=== PATIENT | female | born 1985 | race Two or more races ===

== ENCOUNTER 2021-08-05 15:58 | Emergency (ER) | payer SELFPAY ==
[2021-08-05 16:49] VITALS: BP 114/74; PULSE 89; TEMP 98.1; BMI 23.3
== END 2021-08-05 16:51 | disposition home or self-care (01) ==
LOC: FER 15:58
DX: L76.34 Postprocedural seroma of skin and subcutaneous tissue following other procedure (principal)
CPT/HCPCS: 99281-25

== ENCOUNTER 2022-02-15 15:43 | Emergency (ER) | payer BC ==
[2022-02-15 15:53] VITALS: BP 125/83; PULSE 63; RESP 18; TEMP 100; BMI 23.3
[2022-02-15] MEDS ORDERED: ONDANSETRON 4 MG/2 ML VIAL IVPUSH ONE (16:32)
[2022-02-15] MEDS ORDERED: ACETAMINOPHEN 1000 MG/100 ML BAG IVPB ONE (16:32)
[2022-02-15] MEDS ORDERED: FAMOTIDINE 20 MG/50 ML IVPB 20 MG/50 ML MG IVPB ONE ×2 (16:32→16:54)
[2022-02-15] MEDS ORDERED: SODIUM CHLORIDE 1,000 ML IV STA (16:32)
[2022-02-15] MEDS ORDERED: ONDANSETRON 4 MG/2 ML VIAL ONE (16:54)
[2022-02-15] MEDS ORDERED: ACETAMINOPHEN INJECTION 100 ML IVPB ONE (16:54)
[2022-02-15 17:34] LABS: BASO % 0.3 % (0-2.0); HEMATOCRIT 40.8 % (32.4-45.2); HEMOGLOBIN 13.6 GM/dL (10.7-15.3); LYMPH % 8.4 % (8-40); MCH 28.8 pg (25.7-33.7); MCHC 33.3 g/dl (32.0-36.0); MEAN CELL VOLUME 86.7 fl (80-96); MEAN PLT VOLUME 10.7 fl (7.5-11.1); MONO % 2.5 % (3.8-10.2); NEUT % 88.8 % (42.8-82.8); PLATELET COUNT 173 10^3/uL (134-434); RDW 14.3 % (11.6-15.6)
[2022-02-15 17:38] LABS: EPI CELLS 33 /uL (0-25.1); HYALINE CASTS 3 /uL (0-3.1); PH,URINE 8.5 (5.0-8.0); URINE APPEARANCE CLEAR; URINE BACTERIA 244 /uL (0-1359); URINE BILIRUBIN NEGATIVE (NEGATIVE); URINE COLOR YELLOW; URINE GLUCOSE (UA) NEGATIVE (NEGATIVE); URINE KETONE TRACE (NEGATIVE); URINE LEUK ESTERASE TRACE (NEGATIVE); URINE NITRITE NEGATIVE (NEGATIVE); URINE PROTEIN 1+ (NEGATIVE); URINE RBC 13 /uL (0-23.9); URINE WBC 22 /uL (0-25.8)
[2022-02-15 17:39] LABS: HCG,QUALITATIVE URINE Negative
[2022-02-15 18:04] LABS: CALCIUM 9.5 mg/dL (8.5-10.1)
[2022-02-15 18:05] LABS: ALBUMIN 4.5 g/dl (3.4-5.0); BLOOD UREA NITROGEN 16.3 mg/dL (7-18)
[2022-02-15 18:08] LABS: CREATININE 0.8 mg/dL (0.55-1.3)
[2022-02-15 18:09] LABS: BILIRUBIN,TOTAL 0.7 mg/dL (0.2-1); TOT PROT 7.8 g/dl (6.4-8.2)
== END 2022-02-15 18:47 | disposition home or self-care (01) ==
LOC: JER 15:43
PROC: 3E033NZ Introduction of Analgesics, Hypnotics, Sedatives into Peripheral Vein, Percutaneous Approach (ICD-10-PCS; principal; 2022-02-15)
PROC: 3E033GC Introduction of Other Therapeutic Substance into Peripheral Vein, Percutaneous Approach (ICD-10-PCS; 2022-02-15)
PROC: 3E0337Z Introduction of Electrolytic and Water Balance Substance into Peripheral Vein, Percutaneous Approach (ICD-10-PCS; 2022-02-15)
DX: R11.2 Nausea with vomiting, unspecified (principal)
CPT/HCPCS: 0241U-QW; 36415; 80053; 81003; 83690; 84703; 85025; 87086; 99284-25

== ENCOUNTER 2022-09-15 15:05 | Emergency (ER) | payer BC ==
[2022-09-15 15:28] VITALS: BP 123/89; PULSE 79; RESP 18; TEMP 98.1; BMI 23.3
[2022-09-15] MEDS ORDERED: ACETAMINOPHEN 325 MG TABLET (FP) PO ONE (16:28)
[2022-09-15] MEDS ORDERED: ACETAMINOPHEN 325 MG TABLET (FP) ONE (16:34)
[2022-09-15] MEDS ORDERED: FLUCONAZOLE 150 MG TABLET PO ONE ×2 (16:44→16:45)
== END 2022-09-15 16:55 | disposition home or self-care (01) ==
LOC: FER 15:05
DX: J98.8 Other specified respiratory disorders (principal); B37.9 Candidiasis, unspecified; R50.9 Fever, unspecified; M79.10 Myalgia, unspecified site; R09.81 Nasal congestion; R05.1 Acute cough; R20.8 Other disturbances of skin sensation; R51.9 Headache, unspecified; Z20.822 Contact with and (suspected) exposure to COVID-19
CPT/HCPCS: 0241U-QW; 99283-25

== ENCOUNTER 2024-04-09 23:26 | Emergency (ER) | payer BC ==
[2024-04-09] MEDS ORDERED: SILVER SULFADIAZINE 1% TOP CREAM 50 GM JAR TP ONE (23:36)
[2024-04-09] MEDS ORDERED: CEPHALEXIN MONOHYDRATE 500 MG CAPSULE (UD) ONE (23:37)
[2024-04-09 23:38] VITALS: BP 118/87; PULSE 73; RESP 17; TEMP 98.8; BMI 25.8
[2024-04-09] MEDS ORDERED: IBUPROFEN 600 MG TABLET (FP) PO ONE (23:38)
[2024-04-09] MEDS ORDERED: DIPHTH,PERTUSS(ACELL),TET 0.5 ML DISP.SYRIN IM ONE (23:38)
[2024-04-09] MEDS: DIPHTH,PERTUSS(ACELL),TET 0.5 ML DISP.SYRIN IM ONE (23:48)
[2024-04-09] MEDS: IBUPROFEN 600 MG TABLET (FP) PO ONE (23:50)
[2024-04-09] MEDS: SILVER SULFADIAZINE 1% TOP CREAM 50 GM JAR TP ONE (23:51)
[2024-04-09] MEDS: CEPHALEXIN MONOHYDRATE 500 MG CAPSULE (UD) PO ONE (23:51)
== END 2024-04-10 00:04 | disposition home or self-care (01) ==
LOC: FER 23:26
PROC: 3E0234Z Introduction of Serum, Toxoid and Vaccine into Muscle, Percutaneous Approach (ICD-10-PCS; principal; 2024-04-09)
DX: T23.101A Burn of first degree of right hand, unspecified site, initial encounter (principal); X15.8XXA Contact with other hot household appliances, initial encounter; Z23 Encounter for immunization
CPT/HCPCS: 90471; 90715; 99283-25

== ENCOUNTER 2024-08-31 12:20 | Emergency (ER) | payer OTHER, BC ==
[2024-08-31] MEDS ORDERED: ACETAMINOPHEN 500 MG TABLET (FP) ONE (12:33)
[2024-08-31] MEDS ORDERED: KETOROLAC TROMETHAMINE 15 MG/ML VIAL ONE (12:33)
[2024-08-31] MEDS: KETOROLAC TROMETHAMINE 15 MG/ML VIAL IM ONE (12:39)
[2024-08-31] MEDS: ACETAMINOPHEN 500 MG TABLET (FP) PO ONE (12:40)
[2024-08-31 12:53] VITALS: BP 132/74; PULSE 74; RESP 18; TEMP 98.4; BMI 26.3
== END 2024-08-31 12:56 | disposition home or self-care (01) ==
LOC: FER 12:20
PROC: 3E0233Z Introduction of Anti-inflammatory into Muscle, Percutaneous Approach (ICD-10-PCS; principal; 2024-08-31)
DX: S13.4XXA Sprain of ligaments of cervical spine, initial encounter (principal); V43.02XA Car driver injured in collision with other type car in nontraffic accident, initial encounter
CPT/HCPCS: 99284-25